=== PATIENT | female | born 1945 | race Two or more races ===

== ENCOUNTER 2022-04-03 19:28 | Inpatient (IN) | payer OTHER ==
[~2022-04-03] VITALS: Ht 157.5 cm; Wt 108.9 kg
[2022-04-03] MEDS ORDERED: METFORMIN HCL500 M3 PO (20:45)
[2022-04-03] MEDS ORDERED: SYNTHROID300 MCG PO (20:45)
[2022-04-03] MEDS ORDERED: ZOLOFT100 MG PO (20:45)
[2022-04-03] MEDS ORDERED: FOCALIN XR5 MG PO (20:46)
[2022-04-03] MEDS ORDERED: ATACAND32 MG PO (20:46)
[2022-04-03] MEDS ORDERED: ARICEPT10 MG (20:46)
[2022-04-03] MEDS ORDERED: INGREZZA40 MG PO (20:46)
[2022-04-03] MEDS ORDERED: NORVASC5 MG PO (20:47)
[2022-04-03] MEDS ORDERED: CLONAZEPAM1 M1 PO (20:47)
[2022-04-03] MEDS ORDERED: CARDURA XL4 MG PO (20:47)
[2022-04-03] MEDS ORDERED: LIPITOR20 MG PO (20:47)
== END 2022-04-17 21:21 | disposition home or self-care (01) | DRG 291 ==
LOC: ER 19:28 → ICU-2 04-04 18:14 → MEDI 04-04 18:14 → ICU 04-06 22:46 → MEDI 04-09 19:57
PROVIDERS: ADMIT Internal Medicine; ATTEND Internal Medicine
PROC: 5A0935A Assistance with Respiratory Ventilation, Less than 24 Consecutive Hours, High Flow/Velocity Cannula (ICD-10-PCS; 2022-04-03)
PROC: BW21ZZZ Computerized Tomography (CT Scan) of Abdomen and Pelvis (ICD-10-PCS; 2022-04-03)
PROC: 3E0F7GC Introduction of Other Therapeutic Substance into Respiratory Tract, Via Natural or Artificial Opening (ICD-10-PCS; 2022-04-04)
PROC: BB24Y0Z Computerized Tomography (CT Scan) of Bilateral Lungs using Other Contrast, Unenhanced and Enhanced (ICD-10-PCS; 2022-04-05)
PROC: B246ZZZ Ultrasonography of Right and Left Heart (ICD-10-PCS; 2022-04-06)
PROC: 5A09457 Assistance with Respiratory Ventilation, 24-96 Consecutive Hours, Continuous Positive Airway Pressure (ICD-10-PCS; 2022-04-07)
PROC: 4A12X4Z Monitoring of Cardiac Electrical Activity, External Approach (ICD-10-PCS; principal; 2022-04-09)
PROC: 4A12X4Z Monitoring of Cardiac Electrical Activity, External Approach (ICD-10-PCS; 2022-04-09)
DX: I50.33 Acute on chronic diastolic (congestive) heart failure (principal); J96.92 Respiratory failure, unspecified with hypercapnia; R78.81 Bacteremia; Z68.41 Body mass index [BMI] 40.0-44.9, adult; E11.22 Type 2 diabetes mellitus with diabetic chronic kidney disease; I12.9 Hypertensive chronic kidney disease with stage 1 through stage 4 chronic kidney disease, or unspecified chronic kidney disease; N18.30 Chronic kidney disease, stage 3 unspecified; I11.0 Hypertensive heart disease with heart failure; D72.828 Other elevated white blood cell count; Z88.0 Allergy status to penicillin; E78.00 Pure hypercholesterolemia, unspecified; E66.01 Morbid (severe) obesity due to excess calories; Z79.4 Long term (current) use of insulin; B99.8 Other infectious disease; K29.00 Acute gastritis without bleeding; Z20.822 Contact with and (suspected) exposure to COVID-19

== ENCOUNTER 2022-04-18 16:35 | Inpatient (IN) | payer OTHER ==
[~2022-04-18] VITALS: Ht 160 cm; Wt 89.8 kg
[~2022-04-18 16:35] MED LIST: ARICEPT10 MG; ATACAND32 MG PO; CARDURA XL4 MG PO; CLONAZEPAM1 M1 PO; FOCALIN XR5 MG PO; INGREZZA40 MG PO; LIPITOR20 MG PO; METFORMIN HCL500 M3 PO; NORVASC5 MG PO; SYNTHROID300 MCG PO; ZOLOFT100 MG PO
--- NOTE | 2022-04-18 17:05 | NUR ---
LLEGA EN AMBULANCIA ACOMPANADA POR PARAMEDICOS Y GOLDSTEIN HERMANA, VIENE MILENIUM POR DIFICULTAD AL RESPIRAR, ALERTA Y MANEJABLE ORIENTADA PARCIALMENTE AL MOMENTO SATURANDO A 89 JING SE MANTIENE RECIBIENDO OXIGENO POR CANULA NASAL. SE OBSERVA CON HEMATOMAS EN FRENTE Y SOBRE TABIQUE NASAL. SE UBICO EN OBSERVACION.
--- NOTE | 2022-04-18 17:47 | NUR ---
SE EDUCA A PTE SOBRE TX MEDICO ESTA REFIERE ENTENDER. SE DOTTIE MUESTRAS DE LABORATORIO UTILIZANDO MEDIDAS ASEPTICAS. SE COLOCA H/L A PTE Y SE CLOCA IV FLUIDS. SE NOTIFICAN ABGS Y RX.
== END 2022-04-25 20:45 | disposition designated cancer center or children's hospital (05) | DRG 291 ==
LOC: ER 16:35 → SEC-K 22:02 → SURH 22:02 → SURG 04-19 05:08 → SURH 04-19 09:38 → MEDJ 04-24 16:17
PROVIDERS: ADMIT Internal Medicine; ATTEND Internal Medicine
PROC: B246ZZZ Ultrasonography of Right and Left Heart (ICD-10-PCS; principal; 2022-04-18)
PROC: 3E0F7SF Introduction of Other Gas into Respiratory Tract, Via Natural or Artificial Opening (ICD-10-PCS; 2022-04-18)
PROC: 3E0F7GC Introduction of Other Therapeutic Substance into Respiratory Tract, Via Natural or Artificial Opening (ICD-10-PCS; 2022-04-19)
DX: I13.0 Hypertensive heart and chronic kidney disease with heart failure and stage 1 through stage 4 chronic kidney disease, or unspecified chronic kidney disease (principal); I50.33 Acute on chronic diastolic (congestive) heart failure; B37.49 Other urogenital candidiasis; G47.33 Obstructive sleep apnea (adult) (pediatric); J45.909 Unspecified asthma, uncomplicated; E11.22 Type 2 diabetes mellitus with diabetic chronic kidney disease; N18.30 Chronic kidney disease, stage 3 unspecified; E03.9 Hypothyroidism, unspecified; Z79.4 Long term (current) use of insulin; Z79.84 Long term (current) use of oral hypoglycemic drugs; Z20.822 Contact with and (suspected) exposure to COVID-19

== ENCOUNTER 2022-06-21 05:50 | Day surgery (SDC) | payer OTHER | END 2022-06-21 14:00 | disposition home or self-care (01) | LOC: AMB-ENDOS 05:50 | PROVIDERS: ATTEND Internal Medicine Gastroenterology | DX: K25.3 Acute gastric ulcer without hemorrhage or perforation (principal); R93.3 Abnormal findings on diagnostic imaging of other parts of digestive tract; Z88.0 Allergy status to penicillin; Z20.822 Contact with and (suspected) exposure to COVID-19 ==